=== PATIENT | female | born 2000 | race Caucasian/White ===

== ENCOUNTER 2019-01-20 01:59 | Emergency (ER) | payer SELFPAY ==
--- NOTE | 2019-01-20 02:07 | ED.PDOC ---
History of Present Illness - General Chief Complaint: GI Problem Stated Complaint: vomiting, left rib pain Time Seen by Provider: 01/20/19 02:06 Information Source: patient Exam Limitations: no limitations - History of Present Illness Initial Comments: Venus Funk 18 y/o female brought by mom to ER when she woke up tonight with dull left sided abdominal then followed by several episodes of nausea vomiting prior to ER visit.Stated ate crawfish and chili tonight 1-2 hours prior to getting sick. Abdominal Pain Onset Location: other - left side Pain Radiation: no radiation Quality: moderate, dull Timing/Duration: 1-3 hours Improving Factors: rest Worsening Factors: eating Associated Symptoms: other - see hpi Review of Systems - Review of Systems Constitutional: States: no symptoms reported EENTM: States: no symptoms reported Respiratory: States: no symptoms reported Gastrointestinal/Abdominal: States: see HPI Musculoskeletal: States: no symptoms reported Skin: States: no symptoms reported All other Systems: Reviewed and Negative, No Change from Baseline Past Medical History (General) - Patient Medical History Hx Seizures: No Hx Asthma: No Surgical History: tonsillectomy - Vaccination History Immunizations Up to Date: Yes - Social History Hx Tobacco Use: No Hx Alcohol Use: No Hx Substance Use: No Hx Depression: No Feels Threatened In Home Enviroment: No Hx Physical Abuse: No Hx Emotional Abuse: No - Activities of Daily Living Patient Lives Alone: No - Female History Patient is a Female of Child Bearing Age (10 -59 yrs old): Yes Hx Last Menstrual Period: 01/20/19 Patient : No Family Medical History - Family History Mother Family History: Unknown Physical Exam - Physical Exam General Appearance: Alert, Comfortable, No apparent distress Eyes, Ears, Nose, Throat Exam: PERRL/EOMI, normal ENT inspection, TMs normal, pharynx normal Neck: non-tender, full range of motion, supple, normal inspection Respiratory: chest non-tender, lungs clear, normal breath sounds, no respiratory distress Cardiovascular/Chest: normal peripheral pulses, regular rate, rhythm, no murmur Peripheral Pulses: No deficit Gastrointestinal/Abdominal: soft, tenderness - left side abdomen no peritoneal signs Back Exam: no CVA tenderness, no vertebral tenderness Extremity: no pedal edema, no calf tenderness Neurologic: alert, oriented x 3 Skin Exam: normal color, warm/dry Progress - Progress Progress: 01/20/19 02:56 01/20/19 02:14 IV Care:Saline Lock per Protoc QSHIFT URINALYSIS Stat 01/20/19 02:15 Lactated Ringers [Lr] 1,000 ml IVS ONCE 01/20/19 02:31 COMPLETE METABOLIC PROFILE Stat LIPASE Stat CBC (AUTOMATED) W/AUTO DIFF Stat HCG,SERUM Stat Vital Signs - 8 hr 01/20/19 02:04 Temperature 97.5 F L Pulse Rate [ 74 Left Brachial] Respiratory 20 Rate Blood Pressure 126/80 [Left Arm] O2 Sat by Pulse 99 Oximetry - Results/Orders Results/Orders: 01/20/19 02:14 IV Care:Saline Lock per Protoc QSHIFT 01/20/19 03:32 KCl 20 Meq/Ns [NS W/ KCL 20 meq/Liter] 1,000 ml IVS .QD 01/20/19 03:35 Hold Metformin x 48Hrs [id number] 01/20/19 07:30 Potassium Chloride Tab [Micro-K] 10 meq PO [id number] Laboratory Results - last 24 hr 01/20/19 01/20/19 01/20/19 02:31 02:31 02:31 WBC 13.4 H RBC 4.14 L Hgb 12.7 Hct 38.0 MCV 92.0 MCH 30.7 MCHC 33.3 RDW 12.9 Plt Count 202 MPV 9.4 Absolute Neuts (auto) 11.10 H Absolute Lymphs (auto) 1.40 Absolute Monos (auto) 0.90 H Absolute Eos (auto) 0.00 Absolute Basos (auto) 0.00 Neutrophils % 82.3 H Lymphocytes % 10.6 L Monocytes % 6.8 Eosinophils % 0.0 L Basophils % 0.3 Sodium 139 Potassium 2.7 L Chloride 106 Carbon Dioxide 21 Anion Gap 14.7 BUN 13 Creatinine 0.89 BUN/Creatinine Ratio 14.6 Random Glucose 185 H Serum Osmolality 282.5 Calcium 9.2 Magnesium Total Bilirubin 0.7 AST 20 ALT 13 Alkaline Phosphatase 49 L Serum Total Protein 7.2 Albumin 4.2 Globulin 3.0 Albumin/Globulin Ratio 1.4 Lipase 25 Serum HCG, Qual Negative Urine Color Urine Appearance Urine pH Ur Specific Willow Urine Protein Urine Glucose (UA) Urine Ketones Urine Blood Urine Nitrite Urine Bilirubin Urine Urobilinogen Ur Leukocyte Esterase Urine RBC Urine WBC Ur Epithelial Cells Urine Bacteria Urine Yeast 01/20/19 01/20/19 03:26 03:34 WBC RBC Hgb Hct MCV MCH MCHC RDW Plt Count MPV Absolute Neuts (auto) Absolute Lymphs (auto) Absolute Monos (auto) Absolute Eos (auto) Absolute Basos (auto) Neutrophils % Lymphocytes % Monocytes % Eosinophils % Basophils % Sodium Potassium Chloride Carbon Dioxide Anion Gap BUN Creatinine BUN/Creatinine Ratio Random Glucose Serum Osmolality Calcium Magnesium 1.7 L Total Bilirubin AST ALT Alkaline Phosphatase Serum Total Protein Albumin Globulin Albumin/Globulin Ratio Lipase Serum HCG, Qual Urine Color Dk yellow H Urine Appearance Cloudy Urine pH 6.0 Ur Specific Willow >= 1.030 Urine Protein 30 Urine Glucose (UA) 100 H Urine Ketones 80 H Urine Blood Large H Urine Nitrite Negative Urine Bilirubin Negative Urine Urobilinogen 1.0 Ur Leukocyte Esterase Negative Urine RBC 30-40 H Urine WBC 1-3 Ur Epithelial Cells 1-3 Urine Bacteria 1+ Urine Yeast Rare Discuss all test result with family and patient - EKG/XRAY/CT CT Ordered: Yes - abd/p-4mm left distal ureteral calculus Departure - Departure Clinical Impression: Calculus of distal left ureter, Hypokalemia Abdominal pain Qualifiers: Abdominal location: left lower quadrant Qualified Code(s): R10.32 - Left lower quadrant pain Nausea & vomiting Qualifiers: Vomiting type: unspecified Vomiting Intractability: non-intractable Qualified Code(s): R11.2 - Nausea with vomiting, unspecified Time of Disposition: 05:05 Disposition: Discharge to Home or Self Care Condition: Fair Departure Forms: ED Discharge - Pt. Copy, Patient Portal Self Enrollment Instructions: Renal Colic, Renal Colic (DC), Kidney Stones (DC) Referrals: Sheela Larose NP [Primary Care Provider] - 1-2 Weeks Prescriptions: Acetamin W/Cod #3 Tab [Tylenol w/CODEINE #3] 1 ea PO Q4HR PRN #20 tab PRN Reason: Pain Tamsulosin [Flomax] 0.4 mg PO QDPC #5 cap Home Medications: Ambulatory Orders Acetamin W/Cod #3 Tab [Tylenol w/CODEINE #3] 1 ea PO Q4HR PRN #20 tab 01/20/19 Tamsulosin [Flomax] 0.4 mg PO QDPC #5 cap 01/20/19 Additional Instructions: Increase oral fluid intake preferably water;May take over the counter Potassium tablets one tablet am/pm for 5 days and Advil or/Motrin 3 tablets 3 x a day as needed for pain with Tylenol 3;Follow up with primary Md 23 Jan 2019 for recheck and referral to Urologist
[2019-01-20] MEDS ORDERED: PROCHLORPERAZINE INJ 10 MG/2 ML VIAL IV ONE (02:14)
[2019-01-20] MEDS ORDERED: fentaNYL CITRATE INJ 50 MCG/ML AMP IV ONE ×2 (02:14→04:09)
[2019-01-20] MEDS ORDERED: LACTATED RINGERS 1,000 ML IVS ONE (02:15)
[2019-01-20] MEDS ORDERED: KCL 20 MEQ/NS 1,000 ML IVS PRN (03:32)
[2019-01-20] MEDS ORDERED: POTASSIUM CHLORIDE 10 MEQ TAB PO ONE (03:43)
[2019-01-20] MEDS ORDERED: ONDANSETRON INJ 4 MG/2 ML VIAL IV ONE (04:06)
--- NOTE | 2019-01-20 04:33 | CT ---
EXAM DESCRIPTION: CT ABDOMEN AND PELVIS WITH CONTRAST CLINICAL HISTORY: Left-sided abdominal pain. COMPARISON: None Available. TECHNIQUE: CT of the abdomen and pelvis performed following IV administration of 75 mL of Optiray 320. DLP: 251.50 mGycm FINDINGS: Lung Bases: The visualized lung bases are clear. Bones: No destructive bone lesions identified. Abdomen: Liver: The liver has normal size and density. No intrahepatic mass or biliary dilatation. Gallbladder: No calcified gallstones. Spleen, Pancreas, and Adrenal Glands: The spleen, pancreas, and adrenal glands are unremarkable. Kidneys: There is a 4 mm obstructing calculus in the distal left ureter producing moderate left hydroureter and hydronephrosis. No right-sided hydronephrosis. Vasculature: The aorta and IVC have normal caliber and position. The portal vein is patent. The proximal visceral and renal arteries are patent. Stomach: The stomach and duodenum have normal course. Other: No free intraperitoneal air. No free fluid or lymphadenopathy. Pelvis: Bladder: Urinary bladder is unremarkable. Bowel: No dilated loops of large or small bowel. Appendix: Not identified. Pelvis: Uterus is not enlarged. IMPRESSION: 1. There is a 4 mm obstructing calculus in the distal left ureter producing moderate left hydroureter and hydronephrosis. This exam was performed according to our departmental dose-optimization program, which includes automated exposure control, adjustment of the mA and/or kV according to patient size and/or use of iterative reconstruction technique. Electronically signed by: John Shen 01/20/2019 4:31 AM CDT
[2019-01-20] MEDS ORDERED: KETOROLAC TROMETHAMINE INJ 30 MG/ML VIAL IV ONE (04:47)
[2019-01-20] MEDS ORDERED: TAMSULOSIN 0.4 MG CAP PO ONE (04:47)
[2019-01-20 05:30] VITALS: BP 109/81; TEMP 98.5; O2SAT 99
[2019-01-20] MEDS ORDERED: POTASSIUM CHLORIDE 10 MEQ TAB PO SCH (07:30)
== END 2019-01-20 05:23 | disposition home or self-care (01) ==
LOC: ER 01:59
DX: N13.2 Hydronephrosis with renal and ureteral calculous obstruction (principal); E87.6 Hypokalemia; R10.32 Left lower quadrant pain; R11.2 Nausea with vomiting, unspecified
CPT/HCPCS: 36415; 74177; 80053; 81001; 83690; 83735; 84703; 85025; J0780; J1885; J2060; J2405; J3010; J3480; J7120

== ENCOUNTER 2019-06-26 20:47 | Emergency (ER) | payer OTHER ==
[2019-06-26 20:59] VITALS: O2SAT 99
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
[2019-06-26 23:40] VITALS: BP 105/68; TEMP 98.9
== END 2019-06-26 23:52 | disposition home or self-care (01) ==
LOC: ER 20:47
DX: S00.81XA Abrasion of other part of head, initial encounter (principal); S50.811A Abrasion of right forearm, initial encounter; S50.812A Abrasion of left forearm, initial encounter; S60.511A Abrasion of right hand, initial encounter; S60.512A Abrasion of left hand, initial encounter; V49.59XA Passenger injured in collision with other motor vehicles in traffic accident, initial encounter; Y92.410 Unspecified street and highway as the place of occurrence of the external cause